=== PATIENT | male | born 1950 ===

== ENCOUNTER → 2024-05-25 | Outpatient (CLI) | payer MEDICARE | END | disposition home or self-care (01) | LOC: LAB SHORT 15:45 → LAB 15:45 | DX: R31.0 Gross hematuria (principal) | CPT/HCPCS: 87086 ==

== ENCOUNTER → 2024-05-28 | Outpatient (CLI) | payer MEDICARE | END | disposition home or self-care (01) | LOC: LAB SHORT 14:10 → LAB 14:10 | DX: R30.0 Dysuria (principal) | CPT/HCPCS: 87086 ==